=== PATIENT | male | born 1980 | race Caucasian/White ===

== ENCOUNTER 2024-10-08 13:29 | Inpatient (IN) | payer MEDICAID ==
[~2024-10-08] VITALS: Ht 167.6 cm; Wt 63.5 kg
[~2024-10-08 13:29] MED LIST: IBUP-2028 MT
[2024-10-08 13:41] VITALS: O2SAT 97
[2024-10-08] MEDS: IBUPROFEN 600MG TABLET PO ONE (15:25)
[2024-10-08] MEDS: ACETAMINOPHEN 325MG TABLET PO ONE (15:26)
[2024-10-08 16:19] LABS: BASOPHILS % 1.0 % (0.0-2.0); EOSINOPHILS % 1.6 % (0.0-5.0); HEMATOCRIT. 42.1 % (42.0-52.0); HEMOGLOBIN. 14.2 g/dL (14.0-18.0); LYMPHOCYTES % 23.0 % (20.0-50.0); MEAN PLATELET VOLUME 8.6 fl (7.4-10.4); MONOCYTES % 8.9 % (2.0-8.0); NEUTROPHILS % 65.5 % (40.0-76.0); PLATELET 271 x1000/uL (130-400); RED BLOOD CELL COUNT 4.77 mill/uL (4.7-6.1); RED CELL DISTRIBUTION WIDTH 12.9 % (11.6-14.6)
[2024-10-08 16:30] LABS: CREATININE 1.3 mg/dL (0.6-1.3); UREA NITROGEN BLOOD 15.0 mg/dL (9-23)
[2024-10-08] MEDS: SODIUM CHLORIDE 0.9% (SEPSIS BOLUS) IV ONE (17:09)
[2024-10-08] MEDS: CEFTRIAXONE 1GM/50ML 50 ML IV ONE (17:09)
[2024-10-08] MEDS ORDERED: VANCOMYCIN 1000MG/250ML 250 ML IV SCH (18:15)
[2024-10-08] MEDS: VANCOMYCIN 1G PREMIX 200 ML IV SCH (18:32)
[2024-10-08] MEDS: INSULIN REGULAR (HUMULIN R) 1000UNITS/10ML VIAL SUBCUT ONE (18:33)
[2024-10-08 19:04] LABS: INR 0.9
[2024-10-08 19:08] LABS: ASPARTATE AMINOTRANSFERASE 21 IU/L (<34); BILIRUBIN DIRECT 0.1 mg/dL (<=3.0); BILIRUBIN TOTAL 0.6 mg/dL (0.1-1.0); PROTEIN TOTAL 8.3 g/dL (6.0-8.3)
[2024-10-08] MEDS ORDERED: DEXTROSE 50% WATER 50ML SYRINGE IV PRN ×2 (22:15)
[2024-10-08] MEDS: BLOOD SUGAR DIAGNOSTIC STRIP TEST SCH (23:21)
[2024-10-08] MEDS: INSULIN LISPRO 100 UNITS/ML SUBCUT SCH (23:32)
[2024-10-09 01:00] VITALS: BP 100/58; PULSE 77; RESP 18; TEMP 36.4736
[2024-10-09] MEDS ORDERED: BLOOD SUGAR DIAGNOSTIC STRIP TEST SCH (06:45)
[2024-10-09] MEDS: METFORMIN HCL 500MG TABLET PO SCH (06:54)
[2024-10-09 08:00] VITALS: BP 106/70; PULSE 63; RESP 18; TEMP 36.4; O2SAT 98
[2024-10-09] MEDS: INSULIN GLARGINE 100 UNITS/ML SUBCUT SCH (09:25)
[2024-10-09 10:35] LABS: CLARITY URINE CLEAR (CLEAR); COLOR URINE YELLOW (YELLOW); GLUCOSE URINE 3+ (NEGATIVE); KETONES URINE TRACE (NEGATIVE); LEUKOCYTE ESTERASE URINE NEGATIVE (NEGATIVE); NITRITE URINE NEGATIVE (NEGATIVE); OCCULT BLOOD URINE NEGATIVE (NEGATIVE); PH URINE 7.0 (4.5-8.0); PROTEIN URINE NEGATIVE (NEGATIVE); SPECIFIC GRAVITY URINE 1.041 (1.005-1.030); UROBILINOGEN URINE 0.2 E.U./dL (0.2-1.0)
[2024-10-09 10:59] LABS: BACTERIA URINE NONE SEEN; RBC URINE NONE SEEN /hpf (0-2); SQUAMOUS EPITHELIAL CELL URINE RARE /lpf (RARE/1+); WBC URINE 0-2 /hpf (0-2)
[2024-10-09 12:00] VITALS: BP 98/69; PULSE 74; RESP 18; TEMP 36.7; O2SAT 98
[2024-10-09 12:01] LABS: BASOPHILS % 0.5 % (0.0-2.0); EOSINOPHILS % 2.1 % (0.0-5.0); HEMATOCRIT. 36.8 % (42.0-52.0); HEMOGLOBIN. 12.2 g/dL (14.0-18.0); LYMPHOCYTES % 19.2 % (20.0-50.0); MEAN PLATELET VOLUME 9.4 fl (7.4-10.4); MONOCYTES % 6.6 % (2.0-8.0); NEUTROPHILS % 71.6 % (40.0-76.0); PLATELET 234 x1000/uL (130-400); RED BLOOD CELL COUNT 4.25 mill/uL (4.7-6.1); RED CELL DISTRIBUTION WIDTH 13.0 % (11.6-14.6)
[2024-10-09] MEDS ORDERED: INSU100I28 SQ (12:11)
[2024-10-09 12:16] LABS: CREATININE 0.8 mg/dL (0.6-1.3); TRIGLYCERIDE 191 mg/dL (0-150); UREA NITROGEN BLOOD 14 mg/dL (9-23)
[2024-10-09 12:17] LABS: ASPARTATE AMINOTRANSFERASE 23 IU/L (<34); LDL CHOLESTEROL 64 mg/dL (5-100)
[2024-10-09 12:18] LABS: BILIRUBIN TOTAL 0.3 mg/dL (0.1-1.0); PROTEIN TOTAL 6.2 g/dL (6.0-8.3)
[2024-10-09 17:31] VITALS: BP 94/69; PULSE 74; RESP 18; TEMP 37.1; O2SAT 96
[2024-10-09 20:00] VITALS: BP 92/61; PULSE 73; RESP 16; TEMP 36.9; O2SAT 97
[2024-10-10] VITALS: BP 100/64; PULSE 67; RESP 18; TEMP 36.7; O2SAT 98
[2024-10-10 04:00] VITALS: BP 96/69; PULSE 74; RESP 16; TEMP 37.1; O2SAT 96
[2024-10-10 08:00] VITALS: BP 108/74; PULSE 64; RESP 18; TEMP 36.1; O2SAT 98
[2024-10-10 12:00] VITALS: BP 97/63; PULSE 74; RESP 18; TEMP 36.7; O2SAT 97
[2024-10-10 13:13] VITALS: BP 105/75; PULSE 91; RESP 18; TEMP 97.9
== END 2024-10-10 13:37 | disposition home or self-care (01) | DRG 420 ==
LOC: ER 13:29 → 5WST 18:20 → EDBEDREQTM 20:04 → EDBEDREQ 20:04 → ENRESERV 20:09
PROVIDERS: ADMIT Internal Medicine; ATTEND Internal Medicine
DX: E11.65 Type 2 diabetes mellitus with hyperglycemia (principal); L03.811 Cellulitis of head [any part, except face]; E87.1 Hypo-osmolality and hyponatremia; I10 Essential (primary) hypertension
CPT/HCPCS: 36415; 71045; 80048; 80053; 80061; 80076; 81003; 82962; 83036; 83605; 84145; 85025; 86850; 86900; 93005; 96365; 99285; A4606; J0696; J1815; J3373; J7030